=== PATIENT | female | born 2000 | race Caucasian/White ===

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

== ENCOUNTER 2022-07-12 13:53 | Outpatient (REF) | payer OTHER, SELFPAY ==
[2022-07-14 15:10] LABS: Chlamydia Result Negative (Negative); GC Result Negative (Negative)
== END 2022-07-12 13:54 | disposition home or self-care (01) ==
LOC: LBN 13:53
PROVIDERS: PCP Nurse Practitioner Family; Referring Provider Nurse Practitioner Pediatrics; Visit Provider Nurse Practitioner Pediatrics
DX: Z11.3 Encounter for screening for infections with a predominantly sexual mode of transmission (principal)
CPT/HCPCS: 87491; 87591

== ENCOUNTER 2022-10-27 14:08 | Outpatient (REF) | payer OTHER, SELFPAY | END 2022-10-27 14:09 | disposition home or self-care (01) | LOC: LBN 14:08 | PROVIDERS: PCP Nurse Practitioner Family; Visit Provider Physician Assistant Medical | DX: J02.9 Acute pharyngitis, unspecified (principal) | CPT/HCPCS: 87081 ==

== ENCOUNTER 2023-06-27 10:49 | Outpatient (REF) | payer OTHER, SELFPAY ==
--- NOTE | 2023-06-27 10:30 | PAPFT_PTH ---
PATIENT: [place] V LOC: [facility] U#:[id number] AGE/SX: 23/F ROOM: RE06/27/[address]: Zulma Casillas NP : 2000 BED: DIS: 06/27/2023 SPEC #: [id number] RECD: 06/27/23 14:47 STATUS: [place] REJohn #: [id number] CATIE: 06/27/23 10:[address]: Zulma Casillas NP DEPT: [facility] Cytology RECD BY: Peg Gan ENTERED: 06/27/23 14:47 SP TYPE: PAPFT OTHR DR: Charlette Hernández Tissues: 1 - CX/ENDOCX FOR PAP SMEARS Procedures: PAP THIN PREP/[facility] Screening Comments: [id number] (CHLAMYDIA/GC)
[2023-06-28 15:08] LABS: Chlamydia Result Negative (Negative); GC Result Negative (Negative)
== END 2023-06-27 10:50 | disposition home or self-care (01) ==
LOC: LBN 10:49
PROVIDERS: PCP Nurse Practitioner Family; Visit Provider Nurse Practitioner Women's Health
DX: Z11.3 Encounter for screening for infections with a predominantly sexual mode of transmission (principal); Z12.4 Encounter for screening for malignant neoplasm of cervix
CPT/HCPCS: 87491; 87591; 88142

== ENCOUNTER 2023-07-15 14:19 | Outpatient (REF) | payer OTHER, SELFPAY ==
[2023-07-18 14:19] LABS: Chlamydia Result Negative (Negative); GC Result Negative (Negative)
== END 2023-07-15 14:20 | disposition home or self-care (01) ==
LOC: LBN 14:19
PROVIDERS: PCP Nurse Practitioner Family; Referring Provider Nurse Practitioner Family; Visit Provider Nurse Practitioner Family
DX: Z11.3 Encounter for screening for infections with a predominantly sexual mode of transmission (principal)
CPT/HCPCS: 87491; 87591

== ENCOUNTER 2023-07-21 04:22 | Outpatient (CLI) | payer OTHER, SELFPAY ==
[2023-07-21 19:29] LABS: Thyroglobulin Antibody <15 U/mL (<=60); Thyroperoxidase Antibody <28 U/mL (<=60)
== END 2023-07-21 04:23 | disposition home or self-care (01) ==
LOC: LBO 04:25
PROVIDERS: PCP Nurse Practitioner Family; Visit Provider Nurse Practitioner Family
DX: E04.9 Nontoxic goiter, unspecified (principal)
CPT/HCPCS: 36415; 86376; 84443